=== PATIENT | female | born 1965 | race Caucasian/White ===

== ENCOUNTER 2019-12-22 12:18 | Day surgery (SDC) | payer BC ==
[~2019-12-22] VITALS: Ht 172.7 cm; Wt 129.4 kg
[2019-12-22] VITALS (10 sets, daily range): BP systolic 104–123; BP diastolic 60–76; PULSE 60–80
[2019-12-22] MEDS ORDERED: LIPITOR20 MG PO (12:36)
[2019-12-22] MEDS ORDERED: NORVASC 5MG5 MG/TAB PO (12:36)
[2019-12-22] MEDS ORDERED: CELEXA 20MG20 MG/TAB PO (12:37)
[2019-12-22] MEDS ORDERED: MULTI VITAMINS1 TAB PO (12:38)
[2019-12-22] MEDS ORDERED: TOPROL XL 25MG25 MG PO (12:38)
[2019-12-22] MEDS ORDERED: PRILOTC PO (12:39)
[2019-12-22] MEDS ORDERED: ASPIRIN E.C. 8181 MG PO (12:40)
[2019-12-22] MEDS ORDERED: SANCTURA20 MG PO (12:40)
[2019-12-22 13:10] LABS: HEMATOCRIT 38.3 % (37.0-47.0); HEMOGLOBIN 12.6 g/dl (12.5-16.0); MEAN CELL VOLUME 90 fl (80.0-100.0); MEAN CORPUSCULAR HEMOGLOBIN 30 pg (27.0-31.0); MEAN CORPUSCULAR HGB CONC 33 g/dl (33.0-37.0); MEAN PLATELET VOLUME 11.1 fl (7.4-10.4); PLATELET COUNT 170 K/mm3 (130-400); RED BLOOD COUNT 4.25 M/mm3 (4.10-5.30)
[2019-12-22 13:23] LABS: PROTHROMBIN TIME 11.8 SECONDS (9.7-12.8)
[2019-12-22 13:26] LABS: PARTIAL THROMBOPLASTIN TIME 31.7 SECONDS (26.0-37.0)
[2019-12-22 13:36] LABS: CALCIUM 9.4 mg/dL (8.4-10.2); CREATININE, serum 0.64 (0.52-1.25); POTASSIUM 3.9 mmol/L (3.4-5.0)
--- NOTE | 2019-12-22 14:51 | NUR ---
SEE MERGE FOR MEDICATION ADMINISTRATION TIMES AND INTRA AND POST SEDATION ASSESSMENTS.
--- NOTE | 2019-12-22 15:25 | NUR ---
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 pt is gcs 13, p,w,d, resp reg and unlabored. TR band to rt wrist with 13 in the band. cms intact distal. pt aware of poc. verbal discussion with pt, and daughter about dc and f/u instructions. cardiac monitoring in place. sr on monitor, rate 70's.
--- NOTE | 2019-12-22 18:20 | NUR ---
REMAINDER OF AIR REMOVED FROM BAND. SITE COVERED WITH BANDAID. PT HAS EATEN AND HAD BEEN UP TO RESTROOM WITH STEADY GAIT. DC/FU INSTRUCTIONS HAVE BEEN REVIEWED, NO QUESTIONS OR CONCERNS EXPRESSED. SALINE LOCK DC'D WITH CATH INTACT. CMS INTACT AND THERE IS NO BLEEDING OR HEMATOMA TO RT RADIAL SITE AT TIME OF DEPARTURE. PT ESCORTED TO EXIT AT 1845
== END 2019-12-22 18:53 | disposition home or self-care (01) ==
LOC: COL.CAR 12:18
PROVIDERS: Internal Medicine Cardiovascular Disease
DX: R94.39 Abnormal result of other cardiovascular function study (principal); I10 Essential (primary) hypertension; R07.9 Chest pain, unspecified; E78.5 Hyperlipidemia, unspecified; Z79.82 Long term (current) use of aspirin; Z87.891 Personal history of nicotine dependence; Z80.1 Family history of malignant neoplasm of trachea, bronchus and lung; Z82.5 Family history of asthma and other chronic lower respiratory diseases
CPT/HCPCS: J1644; J2250; J3010; Q9967